=== PATIENT | male | born 2000 | race Caucasian/White ===

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

== ENCOUNTER 2019-06-02 08:56 | Inpatient (IN) | payer BC ==
[2019-06-02] MEDS ORDERED: Sodium Chloride 0.9% 1000 ML 1,000 ML ONE (17:19)
[2019-06-02] MEDS ORDERED: Zofran 4 MG/2 ML VIAL IV PRN (17:57)
[2019-06-02] MEDS ORDERED: Sodium Chloride 0.9% 1000 ML 1,000 ML IV STA (17:57)
[2019-06-02] MEDS: TYLENOL 325 MG PO PRN (18:26)
[2019-06-02] MEDS: Sodium Chloride 0.9% 1000 ML 1,000 ML IV SCH (18:26)
[2019-06-03] MEDS: Sodium Chloride 0.9% 1000 ML 1,000 ML IV SCH ×4 (01:46→22:03)
[2019-06-03] MEDS: TYLENOL 325 MG PO PRN ×3 (03:26→22:31)
[2019-06-03 05:29] LABS: ALBUMIN 3.7 g/dL (3.5-5.0); ALKALINE PHOSPHATASE 51 U/L (38-126); ANION GAP 10.2 MEQ/L (5-15); BLOOD UREA NITROGEN 12 mg/dL (9-20); CHLORIDE 106 mmol/L (98-107); Calcium 8.5 mg/dL (8.4-10.2); Carbon Dioxide 29 mmol/L (22-30); Creatinine 1 1.01 mg/dL (0.66-1.25); Glucose 92 mg/dL (74-106); SGOT/AST 243 U/L (17-59); SGPT/ALT 71 U/L (0-50); SODIUM 141 mmol/L (137-145); Total Protein 6.5 g/dL (6.3-8.2)
[2019-06-03 06:10] LABS: CK-Creatinine Phosphokinase 15936 U/L (55-170)
--- NOTE | 2019-06-03 09:00 | PCM.HP ---
History of Present Illness - Chief Complaint Chief Complaint: Rhabdomyolysis History of Present Illness: is a 19 year old male who presented to the office yesterday with severe pain and swelling in the upper extremities, his symptoms began after doing a very rigorous upper body workout 2 days before and prior to that had not been weightlifting on a regular basis. He has a history of rhabdo in the past after a vigorous workout, his hydration state was not great either and he notes that he went out drinking 2 nights before the incident. He is feeling improved today with overnight hydration but is still very stiff and sore in the arms. - Review of Systems Constitutional: No Fever, No Chills Respiratory: No Cough, No Short Of Breath Cardiac: No Chest Pain, No Edema, No Syncope Abdominal/Gastrointestinal: No Symptoms Genitourinary Symptoms: No Dysuria Musculoskeletal: Myalgias, No Injury Skin: No Rash All Other Systems: Reviewed and Negative Medications & Allergies Home Medications: Home Medication List Ibuprofen 200 mg [Motrin 200 mg] 200 mg PO Q6H PRN 06/02/19 [History Confirmed 06/02/19] Loratadine 10 mg [Claritin 10 mg] 10 mg PO Q24H PRN 06/02/19 [History Confirmed 06/02/19] Allergies/Adverse Reactions: Allergies Allergy/AdvReac Type Severity Reaction Status Date / Time peanut Allergy Severe Anaphylactic Verified 06/02/19 17:54 Reaction - Past Medical History Past Medical History: Yes Neurological History: No Pertinent History ENT History: No Pertinent History Cardiac History: No Pertinent History Respiratory History: Pneumonia Endocrine Medical History: No Pertinent History Musculoskelatal History: No Pertinent History GI Medical History: No Pertinent History History: No Pertinent History Pyscho-Social History: No Pertinent History Male Reproductive Disorders: No Pertinent History Comment: rhabdomylitis - Past Surgical History Past Surgical History: Yes Neuro Surgical History: No Pertinent History, Brain Shunt Cardiac History: No Pertinent History Respiratory Surgery: No Pertinent History GI Surgical History: No Pertinent History Genitourinary Surgical Hx: No Pertinent History Musculskeletal Surgical Hx: Orthopedic Surgery Male Surgical History: No Pertinent History Other Surgical History: screws in ankles/feet - Social History Smoking Status: Never smoker Exposure to second hand smoke: No Alcohol: None Drug Use: none - Physical Exam Vital Signs: Vital Signs - 24 hr Temp Pulse Resp BP Pulse Ox 06/03/19 07:17 97.9 F 65 16 135/66 94 L 06/03/19 04:00 98.0 F 94 H 20 118/70 95 06/03/19 00:00 97.9 F 78 20 118/64 94 L 06/02/19 19:31 98.1 F 82 20 144/80 96 06/02/19 18:30 98.1 F 82 20 144/80 96 General Appearance: no apparent distress, alert Neurologic Exam: alert, oriented x 3, cooperative, normal mood/affect, nml cerebellar function, nml station & gait, sensation nml, No motor deficits Respiratory Exam: normal breath sounds, lungs clear, No respiratory distress Cardiovascular Exam: regular rate/rhythm, normal heart sounds, normal peripheral pulses Gastrointestinal/Abdomen Exam: soft, normal bowel sounds, No tenderness, No mass Extremity Exam: other (tight muscles deangelo upper arms and stiff to palpation, no redness or warmth, tender) Skin Exam: normal color, warm, dry, No rash Results - Labs Lab/Micro Results: Lab Results-Last 24 Hours 06/03/19 Range/Units 04:45 Sodium 141 (137-145) mmol/L Potassium 4.0 (3.5-5.1) mmol/L Chloride 106 (98-107) mmol/L Carbon Dioxide 29 (22-30) mmol/L Anion Gap 10.2 (5-15) MEQ/L BUN 12 (9-20) mg/dL Creatinine 1.01 (0.66-1.25) mg/dL Estimated GFR > 60.0 ML/MIN Glucose 92 (74-106) mg/dL Calcium 8.5 (8.4-10.2) mg/dL Total Bilirubin 0.60 (0.2-1.3) mg/dL AST 243 H (17-59) U/L ALT 71 H (0-50) U/L Alkaline Phosphatase 51 (38-126) U/L Creatine Kinase 60974 H (55-170) U/L Serum Total Protein 6.5 (6.3-8.2) g/dL Albumin 3.7 (3.5-5.0) g/dL Assessment/Plan (1) Rhabdomyolysis Current Visit: No Status: Acute Assessment & Plan: normal renal function, continue aggressive IV hydration Code(s): M62.82 - RHABDOMYOLYSIS (2) Elevated LFTs Current Visit: Yes Status: Acute Assessment & Plan: secondary to rhabdo, continue IV fluids Code(s): R94.5 - ABNORMAL RESULTS OF LIVER FUNCTION STUDIES
[2019-06-03] MEDS ORDERED: MOTRIN 200 MG PO PRN (09:41)
[2019-06-03] MEDS: CLARITIN 10 MG PO SCH ×2 (10:54→13:20)
[2019-06-04] MEDS: Sodium Chloride 0.9% 1000 ML 1,000 ML IV SCH ×4 (04:27→23:47)
[2019-06-04 05:17] LABS: ALBUMIN 3.9 g/dL (3.5-5.0); ALKALINE PHOSPHATASE 51 U/L (38-126); ANION GAP 10.8 MEQ/L (5-15); BLOOD UREA NITROGEN 9 mg/dL (9-20); CHLORIDE 105 mmol/L (98-107); Carbon Dioxide 29 mmol/L (22-30); Creatinine 1 0.98 mg/dL (0.66-1.25); Glucose 89 mg/dL (74-106); SGOT/AST 352 U/L (17-59); SGPT/ALT 111 U/L (0-50); SODIUM 141 mmol/L (137-145); Total Protein 6.8 g/dL (6.3-8.2)
--- NOTE | 2019-06-04 08:22 | PCM.NOTE ---
Date and Time: 06/04/19820 Subjective Assessment: pt reports improvement in soreness and range of motion to deangelo arms, no new complaints. rosemarie po Objective Exam General Appearance: no apparent distress, alert Eye Exam: PERRL, EOMI, eyes nml inspection Respiratory Exam: normal breath sounds, lungs clear, No respiratory distress Cardiovascular Exam: regular rate/rhythm, normal heart sounds Gastrointestinal/Abdomen Exam: soft, No tenderness, No mass Extremity Exam: swelling (deangelo upper arms) OBJECTIVE DATA Vital Signs: Vital Signs - 24 hr Temp Pulse Resp BP Pulse Ox 06/04/19 07:50 98.9 F 79 18 133/85 96 06/04/19 04:00 97.5 F 73 16 134/77 95 06/04/19 00:00 98.0 F 88 16 135/90 95 06/03/19 20:00 98.7 F 82 16 152/75 97 06/03/19 16:00 98.6 F 86 18 132/74 95 06/03/19 11:54 98.8 F 73 18 139/78 94 L Pain Assessment - Last Documented Pain Intensity 1 Pain Scale Used [facility] Intake and Output: Intake & Output 06/01/19 06/02/19 06/03/19 06/04/19 11:59 11:59 11:59 11:59 Intake Total 2945 5891 Output Total 5125 Balance 2945 766 Weight 101 kg Lab Results: Lab Results-Last 24 Hours 06/04/19 06/04/19 Range/Units 04:33 04:33 Sodium 141 (137-145) mmol/L Potassium 4.0 (3.5-5.1) mmol/L Chloride 105 (98-107) mmol/L Carbon Dioxide 29 (22-30) mmol/L Anion Gap 10.8 (5-15) MEQ/L BUN 9 (9-20) mg/dL Creatinine 0.98 (0.66-1.25) mg/dL Estimated GFR > 60.0 ML/MIN Glucose 89 (74-106) mg/dL Calcium 9.0 (8.4-10.2) mg/dL Total Bilirubin 0.60 (0.2-1.3) mg/dL AST 352 H (17-59) U/L ALT 111 H (0-50) U/L Alkaline Phosphatase 51 (38-126) U/L Creatine Kinase 90565 H (55-170) U/L Serum Total Protein 6.8 (6.3-8.2) g/dL Albumin 3.9 (3.5-5.0) g/dL Assessment/Plan (1) Rhabdomyolysis Current Visit: No Status: Acute Assessment & Plan: ck increased today, continue aggressive IV fluids and will monitor labs Code(s): M62.82 - RHABDOMYOLYSIS (2) Elevated LFTs Current Visit: Yes Status: Acute Code(s): R94.5 - ABNORMAL RESULTS OF LIVER FUNCTION STUDIES
[2019-06-04] MEDS: CLARITIN 10 MG PO SCH (09:36)
[2019-06-05 06:15] LABS: ALKALINE PHOSPHATASE 48 U/L (38-126); ANION GAP 12.1 MEQ/L (5-15); BLOOD UREA NITROGEN 9 mg/dL (9-20); CHLORIDE 105 mmol/L (98-107); Calcium 9.1 mg/dL (8.4-10.2); Carbon Dioxide 27 mmol/L (22-30); Creatinine 1 0.96 mg/dL (0.66-1.25); Glucose 97 mg/dL (74-106); SGOT/AST 326 U/L (17-59); SGPT/ALT 126 U/L (0-50); SODIUM 141 mmol/L (137-145); Total Protein 6.8 g/dL (6.3-8.2)
[2019-06-05] MEDS: Sodium Chloride 0.9% 1000 ML 1,000 ML IV SCH ×4 (06:37→23:22)
[2019-06-05 06:53] LABS: CK-Creatinine Phosphokinase 19358 U/L (55-170)
[2019-06-05] MEDS: CLARITIN 10 MG PO SCH (09:27)
[2019-06-05 10:35] LABS: Absolute Neutrophil Ct (ANC) 4.92 (1.4-6.9); BASOPHIL % 0.4 % (0.0-0.4); Basophil (Absolute #) 0.04 (0-0.4); Eosinophil % 5.7 % (0.00-5.0); Eosinophil (Absolute #) 0.52 (0-0.5); Hematocrit 44.5 % (42-50); Hemoglobin 14.4 gm/dl (12.5-18.0); Lymphocyte (Absolute #) 2.75 (1.0-4.6); Lymphocytes % 30.3 % (24.0-44.0); Mean Cell Volume 87.3 fl (78-100); Mean Corpuscular Hemoglobin 28.2 pg (26-32); Mean Corpuscular Hgb Concent. 32.4 g/dl (32-36); Mean Platelet Volume 11.7 fl (6-9.5); Monocyte (Absolute #) 0.86 (0.0-1.3); Monocytes % 9.5 % (0.0-12.0); Neutrophil % 54.1 % (36.0-66.0); Platelet Count 149 K/mm3 (150-450); Red Cell Distribution Width 13.8 % (11.5-14.0); White Blood Count 9.1 K/mm3 (4.0-10.5)
--- NOTE | 2019-06-05 12:14 | PCM.NOTE ---
Date and Time: 06/05/19 121 Subjective Assessment: Parents at bedside. He reports continued firmness in his biceps muscles bilat with left worse than right. He states unable to straighten left arm all the way out due to this. He denies shortness of breath or chest pain. He is urinating well. Drinking fluids well. - Review of Systems Constitutional: No Symptoms Respiratory: No Symptoms Cardiac: No Symptoms Abdominal/Gastrointestinal: No Symptoms Musculoskeletal: Myalgias Skin: No Symptoms Objective Exam General Appearance: no apparent distress Neurologic Exam: alert, cooperative, normal mood/affect Skin Exam: normal color, warm, dry, No rash Respiratory Exam: normal breath sounds, lungs clear, No crackles/rales, No rhonchi, No wheezing Cardiovascular Exam: regular rate/rhythm, normal heart sounds, No murmur, No friction rub, No gallop Gastrointestinal/Abdomen Exam: soft, normal bowel sounds Extremity Exam: other (unable to fully extend left arm at elbow joint, biceps muscle firm to touch, no induration, no erythema, right biceps muscle also firm to touch but able to fully extend right arm at elbow; no tenderness of calves bilat) OBJECTIVE DATA Vital Signs: Vital Signs - 24 hr Temp Pulse Resp BP Pulse Ox 06/05/19 07:33 98.1 F 74 16 124/70 94 L 06/05/19 04:00 97.8 F 70 18 114/59 98 06/04/19 23:31 98.7 F 79 18 134/78 98 06/04/19 20:25 98.9 F 83 17 145/89 97 06/04/19 16:00 98.6 F 104 H 16 134/93 97 Pain Assessment - Last Documented Pain Intensity 0 Pain Scale Used 0-10 Pain Scale Intake and Output: Intake & Output 06/03/19 06/04/19 06/05/19 06/06/19 06:59 06:59 06:59 06:59 Intake Total 2705 6154 5808 420 Output Total 9218 4150 900 Balance 2705 1006 1658 -480 Weight 101 kg 99.6 kg Lab Results: Lab Results-Last 24 Hours 06/05/19 06/05/19 Range/Units 06:07 06:10 WBC 9.1 (4.0-10.5) K/mm3 RBC 5.10 (4.1-5.6) M/mm3 Hgb 14.4 (12.5-18.0) gm/dl Hct 44.5 (42-50) % MCV 87.3 (78-100) fl MCH 28.2 (26-32) pg MCHC 32.4 (32-36) g/dl RDW 13.8 (11.5-14.0) % Plt Count 149 L (150-450) K/mm3 MPV 11.7 H (6-9.5) fl Gran % 54.1 (36.0-66.0) % Eos # (Auto) 0.52 H (0-0.5) Absolute Lymphs (auto) 2.75 (1.0-4.6) Absolute Monos (auto) 0.86 (0.0-1.3) Lymphocytes % 30.3 (24.0-44.0) % Monocytes % 9.5 (0.0-12.0) % Eosinophils % 5.7 H (0.00-5.0) % Basophils % 0.4 (0.0-0.4) % Absolute Granulocytes 4.92 (1.4-6.9) Basophils # 0.04 (0-0.4) Sodium 141 (137-145) mmol/L Potassium 4.0 (3.5-5.1) mmol/L Chloride 105 (98-107) mmol/L Carbon Dioxide 27 (22-30) mmol/L Anion Gap 12.1 (5-15) MEQ/L BUN 9 (9-20) mg/dL Creatinine 0.96 (0.66-1.25) mg/dL Estimated GFR > 60.0 ML/MIN Glucose 97 (74-106) mg/dL Calcium 9.1 (8.4-10.2) mg/dL Total Bilirubin 0.40 (0.2-1.3) mg/dL AST 326 H (17-59) U/L ALT 126 H (0-50) U/L Alkaline Phosphatase 48 (38-126) U/L Creatine Kinase 39143 H (55-170) U/L Serum Total Protein 6.8 (6.3-8.2) g/dL Albumin 4.0 (3.5-5.0) g/dL Assessment/Plan (1) Rhabdomyolysis Current Visit: No Status: Acute Assessment & Plan: CK is still higher than when he was admitted. Increased IV fluids to 200 mL / hr. He is on normal saline. Discussed with diabetes educator, Dr. Bryson and he recommended following clinical as we have and not be as concerned about the CK number if he is improving clinically since his renal function is normal; will check UA as well. Discussed when he does go home will need to continue to hydrate well. Keep again overnight and recheck CK and clinical exam in AM. Code(s): M62.82 - RHABDOMYOLYSIS (2) Elevated LFTs Current Visit: Yes Status: Acute Assessment & Plan: Stable from previous levels. Will continue to monitor. Code(s): R94.5 - ABNORMAL RESULTS OF LIVER FUNCTION STUDIES
[2019-06-05 12:16] LABS: Appearance CLEAR (CLEAR); Bilirubin NEGATIVE (NEGATIVE); Blood NEGATIVE Ery/ul (0-5); Glucose NEGATIVE (NEGATIVE); Ketones NEGATIVE (NEGATIVE); Leukocyte Esterase NEGATIVE (NEGATIVE); Mucus SLIGHT /HPF (NEGATIVE); Nitrite NEGATIVE (NEGATIVE); Protein,Urine Dip NEGATIVE (Negative); Specific Gravity 1.012 (1.005-1.025); Urobilinogen NEGATIVE mg/dL (0-1)
[2019-06-06] MEDS: Sodium Chloride 0.9% 1000 ML 1,000 ML IV SCH ×2 (04:26→09:27)
[2019-06-06 05:16] LABS: ANION GAP 12.4 MEQ/L (5-15); BLOOD UREA NITROGEN 9 mg/dL (9-20); CHLORIDE 106 mmol/L (98-107); Calcium 9.3 mg/dL (8.4-10.2); Carbon Dioxide 26 mmol/L (22-30); Creatinine 1 0.86 mg/dL (0.66-1.25); Glucose 104 mg/dL (74-106); Potassium 3.7 mmol/L (3.5-5.1); SODIUM 141 mmol/L (137-145)
[2019-06-06 07:41] VITALS: BP 127/75; PULSE 75; O2SAT 94
[2019-06-06] MEDS: CLARITIN 10 MG PO SCH (09:26)
--- NOTE | 2019-06-06 10:20 | PCM.DCORD ---
- Discharge Discharge Date: 06/06/19 Disposition: Home, Self-Care Condition: Good Prescriptions: New Acetaminophen 325 mg [Tylenol 325 mg] 650 mg PO Q6H PRN PRN tablet PRN Reason: Pain And/Or Fever Continue Loratadine 10 mg [Claritin 10 mg] 10 mg PO Q24H PRN PRN Reason: Allergies Discontinued Ibuprofen 200 mg [Motrin 200 mg] 200 mg PO Q6H PRN PRN Reason: Pain Outpatient Orders: CK-Creatinine Phosphokinase Location: LABORATORY CMP Location: LABORATORY Additional Instructions: Drink plenty of fluids. Do not lift weights until instructed by Dr. Ramirez and start slow with any weight lifting. Return to ER or office for worsening arm pain or any concerns. Follow up with Dr. Ramirez next week. Follow up with: BREANA RAMIREZ MD [ACTIVE STAFF] - 1 Week
--- NOTE | 2019-06-08 10:16 | DS ---
DISCHARGE DIAGNOSES: 1) RHABDOMYOLYSIS. 2) ELEVATED LIVER FUNCTION TESTS. DISCHARGE PHYSICAL EXAMINATION: VITAL SIGNS: Temperature current 98.0F, temperature max 98.6F, heart rate 75, respiratory rate 16, blood pressure 127/75. Oxygen saturation 94 to 97% on room air. GENERAL: The patient is a pleasant talkative man sitting up in bed and in no acute distress. CVS: He has a regular rate and rhythm. No murmurs, gallops or rubs are appreciated. CHEST: Clear to auscultation bilaterally without any crackles or wheezes. ABDOMEN: Soft, normal bowel sounds. EXTREMITIES: No clubbing, cyanosis or edema. He has some mild firmness of his left biceps but he is able to fully extend both arms and denies any tenderness to palpation. HOSPITAL COURSE: 1) RHABDOMYOLYSIS: He was cared for by Dr. Soto until this weekend. On Friday I spoke with Dr. Felton. He said to treat more clinically rather than worrying about the CK number as much as long as his renal function is good which it is. He has been on normal saline at 150 ml/hour and I increased this to 250 ml/hour on Friday. He had 200 ml/hour of urine output on average over the past 24 hours and CK came down to 11,945. It was 15,936 on 06/03/2019 and peaked at 21,131. The patient stated he usually drinks quite a bit of fluid as an outpatient and was planning to have his CMP and CK rechecked tomorrow and following up closely with Dr. Soto. All of his questions as well as his parents who were at the bedside questions were answered as well. He was instructed not to lift any weights until discussing with Dr. Soto and to start very slowly with this. 2) ELEVATED LIVER FUNCTION TESTS: I did not recheck his liver function tests on the day of discharge. On 06/05/2019, his AST was 326 and ALT was 126. It could be due to the rhabdomyolysis versus alcohol use and will be rechecked tomorrow as an outpatient. DISPOSITION: The patient was discharged to home in good condition. DISCHARGE MEDICATIONS: Please see the discharge order. Laboratories and I printed out an order for him to have creatinine phosphokinase and CMP that can be done tomorrow and I put this order on the front of his paper chart. FOLLOW UP: To follow up with Dr. Soto.
== END 2019-06-06 10:35 | disposition home or self-care (01) | DRG 558 ==
LOC: MED SURG 08:56 → OBSVTOIN 06-03 08:56
PROVIDERS: ADMIT Family Medicine; ATTEND Family Medicine
DX: M62.82 Rhabdomyolysis (principal); R94.5 Abnormal results of liver function studies
CPT/HCPCS: 36415; 80048; 80053; 81001; 82550; 85025; G0378; A9270-GY

== ENCOUNTER 2020-06-12 05:48 | Day surgery (SDC) | payer OTHER, BC ==
[2020-06-12] MEDS ORDERED: Lactated Ringers 1,000 ML IV SCH (06:30)
[2020-06-12 06:36] LABS: Absolute Neutrophil Ct (ANC) 4.52 (1.4-6.9); BASOPHIL % 0.7 % (0.0-0.4); Basophil (Absolute #) 0.06 (0-0.4); Eosinophil % 5.1 % (0.00-5.0); Eosinophil (Absolute #) 0.47 (0-0.5); Hematocrit 46.2 % (42-50); Hemoglobin 15.6 gm/dl (12.5-18.0); Lymphocyte (Absolute #) 3.17 (1.0-4.6); Lymphocytes % 34.7 % (24.0-44.0); Mean Cell Volume 84.9 fl (78-100); Mean Corpuscular Hemoglobin 28.7 pg (26-32); Mean Corpuscular Hgb Concent. 33.8 g/dl (32-36); Mean Platelet Volume 10.3 fl (7.5-11.0); Monocyte (Absolute #) 0.92 (0.0-1.3); Monocytes % 10.1 % (0.0-12.0); Neutrophil % 49.4 % (36.0-66.0); Platelet Count 248 K/mm3 (150-450); Red Blood Count 5.44 M/mm3 (4.1-5.6); Red Cell Distribution Width 13.6 % (11.5-14.0); White Blood Count 9.1 K/mm3 (4.0-10.5)
[2020-06-12 06:46] LABS: ANION GAP 13.7 MEQ/L (5-15); BLOOD UREA NITROGEN 13 mg/dL (9-20); CHLORIDE 104 mmol/L (98-107); Calcium 9.5 mg/dL (8.4-10.2); Carbon Dioxide 25 mmol/L (22-30); Creatinine 1 1.05 mg/dL (0.66-1.25); EST GLOMERULAR FILTRATION RATE > 60.0 ML/MIN; Glucose 100 mg/dL (74-106); Potassium 4.3 mmol/L (3.5-5.1); SODIUM 139 mmol/L (137-145)
[2020-06-12] MEDS ORDERED: DIPRIVAN 200 MG/20 ML IV ONE (08:08)
[2020-06-12 09:21] VITALS: O2SAT 99
[2020-06-12 09:30] VITALS: BP 155/68; PULSE 64
--- NOTE | 2020-06-12 13:07 | OP ---
SURGERY DATE/TIME: 06/12/2020 0809 PREOPERATIVE DIAGNOSIS: Rectal bleeding. POSTOPERATIVE DIAGNOSIS: Terminal ileitis and small sigmoid colon polyp. PROCEDURE: Colonoscopy with cold forceps biopsy. SURGEON: Dr. Chapa. ANESTHESIA: Medications given by anesthesia department. HISTORY: The patient is a 20 year old white male having history of several episodes of rectal bleeding particularly bad for the last several months. The patient denies any significant change in bowels. The bleeding has been painless. The patient was felt the need to have endoscopic evaluation. He was appraised of the risks of the procedure including the risk of perforation, phlebitis, untoward reaction to medication, bleeding and missed lesions. The patient verbalized his understanding and desired to have the procedure performed. DESCRIPTION OF PROCEDURE: The patient was given the medications by the anesthesia department. He had continuous pulse oximetry, ECG monitoring, intermittent blood pressure monitoring and tidal CO2 monitoring during the examination. He was placed in the left lateral decubitus position. A digital rectal examination was performed and revealed normal anal sphincter tone and no masses. No hemorrhoids. No fissure. Normal prostate. The flexible Olympus pediatric colonoscope was used to intubate the rectum. A view of the colon was developed sequentially to the cecum including a short distance into the terminal ileum. Upon insertion and withdrawal, we saw areas of what we felt to be inflammation going on in the terminal ileum and this is biopsied using cold forceps biopsy technique. There was also noted approximately 0.5 cm polyp in the sigmoid colon but did not appear to have any adenomatous change. It was biopsied to be sure. The scope was removed from the patient who tolerated the procedure well and was sent back to OP recovery in good condition. The prep was noted to be fair as there was some solid stool present in the colon and areas of stool. We were able to see at least 98% of the colon lumen.
== END 2020-06-12 09:35 | disposition home or self-care (01) ==
LOC: SDC 05:48
PROVIDERS: ATTEND Family Medicine
DX: K50.00 Crohn's disease of small intestine without complications (principal); D12.5 Benign neoplasm of sigmoid colon; I10 Essential (primary) hypertension; Z79.899 Other long term (current) drug therapy
CPT/HCPCS: 36415; 80048; 85025; J2704